=== PATIENT | male | born 1940 | race Caucasian/White ===

== ENCOUNTER 2020-08-14 20:07 | Inpatient (IN) | payer MEDICARE ==
[~2020-08-14] VITALS: Ht 172.7 cm; Wt 118.3 kg
[~2020-08-14 20:07] MED LIST: heparin 10,000 units/1 ML INJ ONE
[2020-08-14] MEDS ORDERED: ondansetron/PF 4mg/2ml inj IV STA (20:16)
[2020-08-14] MEDS ORDERED: morphine 4 MG/ML inj SYRINge IV STA (20:16)
[2020-08-14] MEDS ORDERED: heparin, porcine 5000 units/ml vial IV STA (20:16)
[2020-08-14] MEDS ORDERED: normal saline 1000ml 1,000 ML IVB ONE (20:25)
[2020-08-14] MEDS ORDERED: nitroGLYCERIN-Tridil 50MG/D5W 250 ML IV ONE (20:33)
[2020-08-14] MEDS ORDERED: ATOR40TA PO (20:34)
[2020-08-14] MEDS ORDERED: LOSA25TA96 PO (20:34)
[2020-08-14] MEDS ORDERED: midazolam 1 mg/ML 2ml injection ONE (20:34)
[2020-08-14] MEDS ORDERED: fentaNYL/PF 50MCG/1 ML 2ML syringe ONE (20:34)
[2020-08-14] MEDS ORDERED: CLOP75TA34 PO (20:34)
[2020-08-14] MEDS ORDERED: METO25TA6 PO (20:34)
[2020-08-14] MEDS ORDERED: iohexol 350MG/ML 100ml bottle IV ONE ×4 (20:34→21:47)
[2020-08-14] MEDS ORDERED: SILD50TA PO (20:34)
[2020-08-14] MEDS ORDERED: heparin 1,000unit/ml 10ml vial 10 ML ONE ×2 (20:34→22:34)
[2020-08-14] MEDS ORDERED: LIDOcaine 1% (10mg/ml)w/preservative injection 20ml MDV ONE (20:34)
[2020-08-14] MEDS ORDERED: ASPI81TA52 PO (20:34)
--- NOTE | 2020-08-14 20:38 | NUR ---
dr almaguer at bedside.
--- NOTE | 2020-08-14 20:42 | NUR ---
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
[2020-08-14 20:45] LABS: ALANINE AMINOTRANSFERASE 37 U/L (12-78); ALBUMIN 3.5 G/DL (3.4-5.0); ALKALINE PHOSPHATASE 116 IU/L (46-116); ANION GAP 8 (8-16); ASPARTATE AMINO TRANSFERASE 25 U/L (10-37); BILIRUBIN,TOTAL 0.4 MG/DL (0.1-1.0); BLOOD UREA NITROGEN 22 MG/DL (7-18); BUN/CREATININE RATIO 18.2 (5.4-32.0); CALCIUM 8.7 MG/DL (8.5-10.1); CHLORIDE 103 MMOL/L (99-107); CREATININE 1.21 MG/DL (0.60-1.10); GLUCOSE 133 MG/DL (70-104); POTASSIUM 3.3 MMOL/L (3.5-5.1); SODIUM 139 MMOL/L (135-145); TOTAL CARBON DIOXIDE 28.2 MMOL/L (24-32); TOTAL PROTEIN 7.1 G/DL (6.4-8.2); eGFR 58 ML/MIN
[2020-08-14 20:49] LABS: BASOPHILS # (AUTO) 0.1 X10'3 (0-0.2); BASOPHILS % (AUTO) 1.6 % (0-1); EOSINOPHILS # (AUTO) 0.7 X10'3 (0-0.9); EOSINOPHILS % (AUTO) 8.4 % (0-6); HEMATOCRIT 39.9 % (42.0-52.0); HEMOGLOBIN 13.7 g/dl (14.0-17.9); LYMPHOCYTES # (AUTO) 2.4 X10'3 (1.1-4.8); LYMPHOCYTES % (AUTO) 29.2 % (21-51); MEAN CORPUSCULAR HEMOGLOBIN 32.2 PG (27.0-31.0); MEAN CORPUSCULAR HGB CONC 34.2 g/dL (33.0-36.5); MEAN PLATELET VOLUME 8.8 FL (7.4-10.4); MONOCYTES % (AUTO) 12.8 % (2-12); NEUTROPHILS # (AUTO) 3.9 X10'3 (1.8-7.7); PLATELET COUNT 238 X10'3 (140-440); RED BLOOD COUNT 4.24 X10'6 (4.70-6.10); RED CELL DISTRIBUTION WIDTH 13.4 % (11.5-14.5); WHITE BLOOD COUNT 8.1 X10'3 (4.5-11.0)
[2020-08-14] MEDS ORDERED: heparin 25,000 UNIT/250ml bag 250 ML IV ONE (20:56)
[2020-08-14] MEDS ORDERED: verapamil 2.5 mg/ml inj IV ONE (21:49)
[2020-08-14] MEDS ORDERED: heparin 1,000 UNITS/NS 500ml 500 ML ONE (22:13)
[2020-08-14] MEDS ORDERED: ticagrelor 90mg tablet ONE (22:46)
[2020-08-14] MEDS ORDERED: tirofiban 5mg in NS 100mL 100 ML IV ONE ×2 (22:56→23:27)
--- NOTE | 2020-08-14 23:30 | NUR ---
Patient arrived from [facility] via gurney. Report from VARGHESE Juan. Patient is awake and alert, c/o some discomfort to his anterior chest substernal rated 6-7/10 by patient. Patient describes pain as a "sharp ache" denies any radiation, shortness of breath, or nausea. Per report from VARGHESE Juan: Dr. Perez is aware of his chest pain and some chest discomfort is expected. Written orders from reviewed, noted and faxed to pharmacy. 12 - lead ECG completed. Right femoral arterial line transduced to pressure tubing and zeroed. Patient educated on post op care of right femoral arterial line, remaining supine.
[2020-08-14 23:45] VITALS: BP 177/77
[2020-08-14] MEDS ORDERED: OXAZEpam 15mg capsule PO PRN (23:45)
[2020-08-14] MEDS ORDERED: proCHLORperazine 10 MG/2 ml inj IV PRN (23:45)
[2020-08-14] MEDS ORDERED: morphine 10mg/ml inj. IV PRN (23:45)
[2020-08-14] MEDS ORDERED: ticagrelor 90mg tablet PO ONE (23:45)
[2020-08-14] MEDS ORDERED: magnesium hydroxide 30ml (MOM) UD suspension PO PRN (23:45)
[2020-08-14] MEDS ORDERED: acetaminophen 325mg tablet PO PRN ×2 (23:45)
[2020-08-14] MEDS ORDERED: HYDROcodone/acetaminophen 10/325mg tab PO PRN ×2 (23:45)
[2020-08-14] MEDS ORDERED: normal saline 1000ml 1,000 ML IV ONE (23:50)
[2020-08-15] VITALS (25 sets, daily range): BP systolic 108–167; BP diastolic 1–75
[2020-08-15] MEDS ORDERED: nitroGLYCERIN-Tridil 50MG/D5W 250 ML IV PRN
[2020-08-15] MEDS: morphine 2 MG/ML inj. syringe IV PRN ×4 (00:11→12:17)
[2020-08-15] MEDS: tirofiban 5mg in NS 100mL 100 ML IV SCH ×5 (00:17→23:35)
[2020-08-15] MEDS ORDERED: magnesium 2GM in 50ml NS 50 ML IV PRN (00:35)
[2020-08-15] MEDS ORDERED: potassium Cl 40MEQ/1/2NS 520ml 520 ML IV PRN (00:35)
[2020-08-15] MEDS ORDERED: magnesium Cl slow-release 64mg tablet PO PRN (00:35)
[2020-08-15] MEDS ORDERED: magnesium 4gm in 100ml NS 100 ML IV PRN (00:35)
[2020-08-15] MEDS ORDERED: potassium Cl 20 mEq SR tablet PO PRN (00:35)
[2020-08-15 01:30] LABS: MAGNESIUM 1.8 MG/DL (1.5-2.4); POTASSIUM 3.8 MMOL/L (3.5-5.1)
[2020-08-15] MEDS: potassium Cl 20 mEq SR tablet PO PRN ×3 (02:19→14:15)
--- NOTE | 2020-08-15 03:00 | NUR ---
Patient educated on not straining while urinating and the importance of remaining supine.
[2020-08-15] MEDS: cyclobenzaprine 10mg tablet PO PRN ×2 (04:43→12:16)
[2020-08-15 06:00] LABS: BASOPHILS # (AUTO) 0.1 X10'3 (0-0.2); BASOPHILS % (AUTO) 0.7 % (0-1); EOSINOPHILS # (AUTO) 0.1 X10'3 (0-0.9); EOSINOPHILS % (AUTO) 0.8 % (0-6); HEMATOCRIT 37.8 % (42.0-52.0); HEMOGLOBIN 12.8 g/dl (14.0-17.9); LYMPHOCYTES # (AUTO) 1.2 X10'3 (1.1-4.8); LYMPHOCYTES % (AUTO) 11.1 % (21-51); MEAN CORPUSCULAR HEMOGLOBIN 32.1 PG (27.0-31.0); MEAN CORPUSCULAR HGB CONC 33.7 g/dL (33.0-36.5); MEAN CORPUSCULAR VOLUME 95.1 FL (78-98); MEAN PLATELET VOLUME 8.7 FL (7.4-10.4); MONOCYTES # (AUTO) 0.8 X10'3 (0-0.9); MONOCYTES % (AUTO) 7.2 % (2-12); NEUTROPHILS # (AUTO) 8.7 X10'3 (1.8-7.7); NEUTROPHILS % (AUTO) 80.2 % (42-75); PLATELET COUNT 222 X10'3 (140-440); RED BLOOD COUNT 3.98 X10'6 (4.70-6.10); RED CELL DISTRIBUTION WIDTH 13.6 % (11.5-14.5); WHITE BLOOD COUNT 10.8 X10'3 (4.5-11.0)
--- NOTE | 2020-08-15 06:15 | NUR ---
Problems reprioritized. Patient report given, questions answered & plan of care reviewed with VARGHESE Black.
--- NOTE | 2020-08-15 06:23 | NUR ---
Dr. Perez service called to report hematoma at cath site. Approximately 5cm.
[2020-08-15 06:25] LABS: ALANINE AMINOTRANSFERASE 54 U/L (12-78); ALBUMIN 3.2 G/DL (3.4-5.0); ALKALINE PHOSPHATASE 101 IU/L (46-116); ANION GAP 9 (8-16); ASPARTATE AMINO TRANSFERASE 237 U/L (10-37); BILIRUBIN,TOTAL 0.5 MG/DL (0.1-1.0); BLOOD UREA NITROGEN 18 MG/DL (7-18); BUN/CREATININE RATIO 16.4 (5.4-32.0); CALCIUM 7.8 MG/DL (8.5-10.1); CHLORIDE 105 MMOL/L (99-107); CHOL/HDL RATIO 2.4 (0.00-4.99); CHOLESTEROL 133 MG/DL (0-200); GLUCOSE 138 MG/DL (70-104); HDL CHOLESTEROL 55 MG/DL (35-60); LDL CHOLESTEROL 70 MG/DL (50-100); MAGNESIUM 1.8 MG/DL (1.5-2.4); POTASSIUM 3.8 MMOL/L (3.5-5.1); SODIUM 138 MMOL/L (135-145); TOTAL CARBON DIOXIDE 24.2 MMOL/L (24-32); TOTAL PROTEIN 6.4 G/DL (6.4-8.2); TRIGLYCERIDES 59 MG/DL (20-135); eGFR 65 ML/MIN
--- NOTE | 2020-08-15 06:30 | NUR ---
Dr. Perez returned phone call. Orders to turn off Heparin, continue Aggrastat. Hold manual pressure for [address] Femstop above sheath. quarter supervisor made aware of situation. Manual pressure held by Godwin KWONG.
--- NOTE | 2020-08-15 06:40 | NUR ---
femstop applied by Godwin above sheath pulses palpable, will continue to monitor.
[2020-08-15] MEDS: losartan 50mg tablet PO SCH (07:55)
[2020-08-15] MEDS: ticagrelor 90mg tablet PO SCH ×2 (07:56→19:33)
[2020-08-15] MEDS: HYDROchlorothiazide 25mg tablet PO SCH (07:56)
[2020-08-15] MEDS: docusate sod 100mg capsule PO SCH ×2 (07:56→19:33)
[2020-08-15] MEDS: atorvastatin 20mg tablet PO SCH (07:57)
[2020-08-15] MEDS: aspirin 81mg tab.chew PO SCH (07:57)
[2020-08-15] MEDS: metoprolol tartrate 25mg tablet PO SCH ×2 (07:57→19:34)
[2020-08-15] MEDS ORDERED: LOSA1TAB39 PO (10:35)
--- NOTE | 2020-08-15 17:30 | NUR ---
FEMSTOP TO RIGHT FENIRAL REMOVED., NO BLEEDING NOTED, ECCYMOSIS ON THE AREA NOTED, AREA SOFT, PRESSURE DRESSING APPLIED.
--- NOTE | 2020-08-15 18:15 | NUR ---
Patient in room ICU 2041. I have received report from Sofia KWONG and had the opportunity to ask questions and assume patient care.
--- NOTE | 2020-08-15 19:50 | NUR ---
Report given ACCE RN, pt to be transferred via wheelchair with his belongings to room 313.
--- NOTE | 2020-08-15 20:30 | NUR ---
2020-Pt to room 313, helped to bed, no dizziness when standing.
--- NOTE | 2020-08-15 20:32 | NUR ---
PATIENT IN 313 ACCE
--- NOTE | 2020-08-15 20:32 | NUR ---
Patient in room ICU 2041. I have received report from curriculum and assessment director and had the opportunity to ask questions and assume patient care.
[2020-08-16 01:52] VITALS: BP 128/66
[2020-08-16] MEDS: tirofiban 5mg in NS 100mL 100 ML IV SCH ×2 (04:21→09:07)
--- NOTE | 2020-08-16 06:28 | NUR ---
Problems reprioritized. Patient report given, questions answered & plan of care reviewed with Shorty KWONG.
[2020-08-16 07:00] VITALS: BP 133/51
[2020-08-16] MEDS: HYDROchlorothiazide 25mg tablet PO SCH (07:13)
[2020-08-16] MEDS: ticagrelor 90mg tablet PO SCH ×2 (07:13→15:29)
[2020-08-16] MEDS: aspirin 81mg tab.chew PO SCH (07:13)
[2020-08-16] MEDS: losartan 50mg tablet PO SCH (07:14)
[2020-08-16] MEDS: docusate sod 100mg capsule PO SCH (07:14)
[2020-08-16] MEDS: metoprolol tartrate 25mg tablet PO SCH (07:18)
[2020-08-16] MEDS: atorvastatin 20mg tablet PO SCH (07:18)
[2020-08-16] MEDS ORDERED: potassium Cl 20 mEq SR tablet PO PRN ×2 (09:15)
[2020-08-16] MEDS ORDERED: K and/or MAG REPLACEMENT MC SCH (09:15)
[2020-08-16 11:00] VITALS: BP 118/69
[2020-08-16 11:23] LABS: MAGNESIUM 1.9 MG/DL (1.5-2.4)
[2020-08-16 11:26] LABS: POTASSIUM 3.7 MMOL/L (3.5-5.1)
[2020-08-16] MEDS ORDERED: ATOR-2 PO (13:44)
[2020-08-16] MEDS ORDERED: TICA90TA PO (13:44)
--- NOTE | 2020-08-16 15:32 | NUR ---
reviewed all discharge instructions with pt and ,[facility] [place]pt aware that brillenta will not be in @ [facility] until 3/15 am,pt given evening dose before leaving,SL dc'd from left hand and RAC, sites clear,pt provided post angio instructions,pt dc'd via w/c with all belongings
== END 2020-08-16 15:32 | disposition home or self-care (01) | DRG 246 ==
LOC: ER 20:08 → ICU 2S 23:24 → UNDOADMIN 23:24 → ICU 2S 08-15 21:03 → MED 3N 08-15 21:03 → UNDODISIN 08-16 15:32
PROVIDERS: ADMIT Internal Medicine Pulmonary Disease; ATTEND Internal Medicine Pulmonary Disease
PROC: 4A023N7 Measurement of Cardiac Sampling and Pressure, Left Heart, Percutaneous Approach (ICD-10-PCS; principal; 2020-08-15)
PROC: 027035Z Dilation of Coronary Artery, One Artery with Two Drug-eluting Intraluminal Devices, Percutaneous Approach (ICD-10-PCS; 2020-08-15)
PROC: B2111ZZ Fluoroscopy of Multiple Coronary Arteries using Low Osmolar Contrast (ICD-10-PCS; 2020-08-15)
PROC: B2151ZZ Fluoroscopy of Left Heart using Low Osmolar Contrast (ICD-10-PCS; 2020-08-15)
PROC: B3101ZZ Fluoroscopy of Thoracic Aorta using Low Osmolar Contrast (ICD-10-PCS; 2020-08-15)
PROC: B2131ZZ Fluoroscopy of Multiple Coronary Artery Bypass Grafts using Low Osmolar Contrast (ICD-10-PCS; 2020-08-15)
PROC: B2181ZZ Fluoroscopy of Left Internal Mammary Bypass Graft using Low Osmolar Contrast (ICD-10-PCS; 2020-08-15)
DX: T82.867A Thrombosis due to cardiac prosthetic devices, implants and grafts, initial encounter (principal); I21.19 ST elevation (STEMI) myocardial infarction involving other coronary artery of inferior wall; E78.00 Pure hypercholesterolemia, unspecified; E78.5 Hyperlipidemia, unspecified; I10 Essential (primary) hypertension; M54.2 Cervicalgia; Y83.2 Surgical operation with anastomosis, bypass or graft as the cause of abnormal reaction of the patient, or of later complication, without mention of misadventure at the time of the procedure; E66.9 Obesity, unspecified; M19.90 Unspecified osteoarthritis, unspecified site; I25.10 Atherosclerotic heart disease of native coronary artery without angina pectoris; Z96.651 Presence of right artificial knee joint; N28.9 Disorder of kidney and ureter, unspecified; Z86.79 Personal history of other diseases of the circulatory system; Z95.1 Presence of aortocoronary bypass graft; Y92.89 Other specified places as the place of occurrence of the external cause; Z79.899 Other long term (current) drug therapy; Z79.82 Long term (current) use of aspirin; Z68.39 Body mass index [BMI] 39.0-39.9, adult; Z80.1 Family history of malignant neoplasm of trachea, bronchus and lung; Z86.73 Personal history of transient ischemic attack (TIA), and cerebral infarction without residual deficits
CPT/HCPCS: 92920; 93306; 93459; 96374; 96375; 99291; C9606; 36415; 71045; 76937; 80053; 80061; 82948; 83735; 83880; 84132; 84484; 85025; 85347; 85730; 87081; 93005; 93308; 99152; 99153; A4620; A6258; C1725; C1751; C1769; C1874; C1887; C1894; G0378; J1644; J2001; J2250; J2270; J2405; J3010; J3246; J3490; J7030; J7040; Q9967

== ENCOUNTER 2021-11-05 08:58 | Outpatient (CLI) | payer MEDICARE ==
[~2021-11-05] VITALS: Ht 172.7 cm; Wt 109.3 kg
[2021-11-05] VITALS (9 sets, daily range): BP systolic 97–137; BP diastolic 46–67
[~2021-11-05 08:58] MED LIST changes: +ASPI81TA52 PO; +ATOR-2 PO; +LOP25T PO; +LOSA1TAB39 PO; +TICA90TA PO; -heparin 10,000 units/1 ML INJ ONE
[2021-11-05] MEDS ORDERED: regadenoson 0.4mg/5ml syringe IV ONE (10:00)
[2021-11-05] MEDS ORDERED: nitroGLYCERIN 0.4mg SUBLingual tab SL PRN (10:00)
[2021-11-05] MEDS ORDERED: normal saline 500ml IV soln 500 ML IV ONE (10:00)
[2021-11-05] MEDS ORDERED: aminophylline 500mg/20ml vial IV PRN (10:00)
[2021-11-05 13:03] LABS: ALBUMIN 3.8 G/DL (3.4-5.0); ANION GAP 9 (8-16); BLOOD UREA NITROGEN 27 MG/DL (7-18); BUN/CREATININE RATIO 22.3 (5.4-32.0); CALCIUM 8.9 MG/DL (8.5-10.1); CHLORIDE 102 MMOL/L (99-107); CREATININE 1.21 MG/DL (0.60-1.10); GLUCOSE 95 MG/DL (70-104); SODIUM 139 MMOL/L (135-145); TOTAL CARBON DIOXIDE 28.4 MMOL/L (24-32); eGFR 58 ML/MIN
[2021-11-05 13:09] LABS: POTASSIUM 3.8 MMOL/L (3.5-5.1)
== END 2021-11-05 23:59 | disposition home or self-care (01) ==
LOC: RAD 08:58
PROVIDERS: ATTEND Internal Medicine Cardiovascular Disease
DX: I34.0 Nonrheumatic mitral (valve) insufficiency (principal); I51.7 Cardiomegaly; I25.10 Atherosclerotic heart disease of native coronary artery without angina pectoris
CPT/HCPCS: 36415; 78452; 80048; 83880; 93017; 93306; A9500; J0280; J2785; J7040

== ENCOUNTER 2021-12-13 06:48 | Day surgery (SDC) | payer MEDICARE ==
[2021-12-10 10:22] LABS: ALBUMIN 3.6 G/DL (3.4-5.0); ANION GAP 9 (8-16); BLOOD UREA NITROGEN 32 MG/DL (7-18); BUN/CREATININE RATIO 18.7 (5.4-32.0); CALCIUM 8.9 MG/DL (8.5-10.1); CHLORIDE 104 MMOL/L (99-107); CREATININE 1.71 MG/DL (0.60-1.10); GLUCOSE 96 MG/DL (70-104); POTASSIUM 3.6 MMOL/L (3.5-5.1); SODIUM 141 MMOL/L (135-145); TOTAL CARBON DIOXIDE 28.1 MMOL/L (24-32); eGFR 39 ML/MIN
[2021-12-10 10:24] LABS: BASOPHILS # (AUTO) 0.1 X10'3 (0-0.2); BASOPHILS % (AUTO) 1.3 % (0-1); EOSINOPHILS # (AUTO) 0.5 X10'3 (0-0.9); EOSINOPHILS % (AUTO) 5.6 % (0-6); HEMATOCRIT 36.6 % (42.0-52.0); HEMOGLOBIN 12.4 g/dl (14.0-17.9); LYMPHOCYTES # (AUTO) 1.4 X10'3 (1.1-4.8); LYMPHOCYTES % (AUTO) 16.6 % (21-51); MEAN CORPUSCULAR HEMOGLOBIN 31.5 PG (27.0-31.0); MEAN CORPUSCULAR HGB CONC 33.9 g/dL (33.0-36.5); MEAN CORPUSCULAR VOLUME 93.2 FL (78-98); MEAN PLATELET VOLUME 8.4 FL (7.4-10.4); MONOCYTES # (AUTO) 0.9 X10'3 (0-0.9); NEUTROPHILS # (AUTO) 5.7 X10'3 (1.8-7.7); NEUTROPHILS % (AUTO) 66.5 % (42-75); PLATELET COUNT 216 X10'3 (140-440); RED BLOOD COUNT 3.93 X10'6 (4.70-6.10); RED CELL DISTRIBUTION WIDTH 13.7 % (11.5-14.5); WHITE BLOOD COUNT 8.6 X10'3 (4.5-11.0)
[2021-12-10 10:25] LABS: APTT 30 SECONDS (22-32)
[~2021-12-13] VITALS: Ht 172.7 cm; Wt 108.9 kg
[2021-12-13] VITALS (15 sets, daily range): BP systolic 79–126; BP diastolic 43–75
[2021-12-13] MEDS ORDERED: verapamil 2.5 mg/ml inj IV ONE (07:33)
[2021-12-13] MEDS ORDERED: heparin 1,000unit/ml 10ml vial 10 ML ONE (07:34)
[2021-12-13] MEDS ORDERED: midazolam 1 mg/ML 2ml injection ONE (07:34)
[2021-12-13] MEDS ORDERED: iohexol 350MG/ML 100ml bottle IV ONE ×5 (07:34→10:32)
[2021-12-13] MEDS ORDERED: LIDOcaine 1% (10mg/ml) 2ml vial ONE (07:34)
[2021-12-13] MEDS ORDERED: nitroGLYCERIN-Tridil 50MG/D5W 250 ML IV ONE (07:34)
[2021-12-13] MEDS ORDERED: fentaNYL/PF 50MCG/1 ML 2ML syringe ONE (07:34)
[2021-12-13] MEDS ORDERED: sodium bicarbonate (8.4%) inj. 150 ML in dextrose 5%-water 1,000 ML IV ONE ×2 (07:35→12:48)
[2021-12-13] MEDS ORDERED: LORazepam 0.5 MG tablet PO PRN (07:35)
[2021-12-13] MEDS ORDERED: LIDOcaine/PRILOcaine 5gm cream TP ONE (07:35)
[2021-12-13] MEDS ORDERED: diphenhydrAMINE 25mg capsule PO PRN (07:35)
--- NOTE | 2021-12-13 08:15 | NUR ---
notified of low bp. New order received to give pt 250mls of NS Bolus not. May repeat if BP systolic not improved over 100. Addendum: 12/13/21 at 1033 by John Estrada RN Amended: Links added.
[2021-12-13] MEDS: normal saline 1,000 ML IV SCH ×2 (08:30→17:35)
[2021-12-13] MEDS: acetylcysteine 200 MG/ml 4ml vial PO PRN ×2 (08:30→12:21)
[2021-12-13] MEDS ORDERED: APIX5TAB3 PO (08:50)
[2021-12-13] MEDS ORDERED: TICA90TA2 PO (08:50)
[2021-12-13] MEDS ORDERED: AMIO200T61 PO (08:50)
[2021-12-13] MEDS ORDERED: ATOR-2 PO (08:50)
[2021-12-13] MEDS ORDERED: FURO20TA4 PO (08:50)
[2021-12-13] MEDS ORDERED: NAPR220T67 PO (08:50)
[2021-12-13] MEDS ORDERED: heparin 25,000 UNIT/250ml bag 250 ML IV ONE (09:41)
[2021-12-13] MEDS ORDERED: heparin 1,000 UNITS/NS 500ml 500 ML ONE (10:40)
[2021-12-13] MEDS ORDERED: ticagrelor 90mg tablet ONE (11:02)
[2021-12-13 11:31] LABS: ISTAT Hct MIX 33 %PCV (42-52); ISTAT O2 SATURATION MIX VENOUS 62 % (60-80); ISTAT SOURCE BLNK
[2021-12-13 11:31] LABS: ISTAT HGB ART 11.2 g/dl (14.0-18.0); ISTAT Hct ART 33 %PCV (42-52); ISTAT O2 SATURATION ARTERIAL 98 % (95-98); ISTAT SOURCE BLNK
[2021-12-13] MEDS ORDERED: ondansetron/PF 4mg/2ml inj IV PRN (13:05)
[2021-12-13] MEDS ORDERED: proCHLORperazine 10 MG/2 ml inj IV PRN (13:05)
[2021-12-13] MEDS ORDERED: HYDROcodone/acetaminophen 10/325mg tab PO PRN (13:05)
[2021-12-13] MEDS ORDERED: furosemide 20MG tablet PO PRN (13:25)
--- NOTE | 2021-12-13 17:15 | NUR ---
Report given to Enriqueta KWONG and chance given to ask questions. Pt transferred with all personal belongings. accompanying pt to room. Addendum: 12/13/21 at 1842 by John Estrada RN Amended: Links added.
--- NOTE | 2021-12-13 17:46 | NUR ---
Patient is alert, oriented, and appropriate. Left radial cath site is CDI no hematoma. Radial band is off and pressure dressing is in place. Sensation and distal pulses intact. Patient in no acute distress.
--- NOTE | 2021-12-13 18:24 | NUR ---
Problems reprioritized. Patient report given, questions answered & plan of care reviewed with Jack RN. Patient resting in bed in no acute distress.
[2021-12-13] MEDS: amiodarone 200mg tablet PO SCH (20:26)
[2021-12-13] MEDS: ticagrelor 90mg tablet PO SCH (20:26)
[2021-12-13] MEDS: metoprolol tartrate 25mg tablet PO SCH (20:33)
[2021-12-13] MEDS: HYDROcodone/acetaminophen 5mg/325mg tablet PO PRN (20:34)
[2021-12-14] VITALS (9 sets, daily range): BP systolic 97–117; BP diastolic 43–62
[2021-12-14] MEDS: normal saline 1,000 ML IV SCH ×2 (03:35→13:35)
[2021-12-14] MEDS ORDERED: verapamil 2.5 mg/ml inj IV ONE (06:03)
[2021-12-14] MEDS ORDERED: midazolam 1 mg/ML 2ml injection ONE (06:03)
[2021-12-14] MEDS ORDERED: nitroGLYCERIN-Tridil 50MG/D5W 250 ML IV ONE (06:03)
[2021-12-14] MEDS ORDERED: fentaNYL/PF 50MCG/1 ML 2ML syringe ONE (06:03)
[2021-12-14] MEDS ORDERED: heparin 1,000unit/ml 10ml vial 10 ML ONE (06:04)
[2021-12-14] MEDS ORDERED: iohexol 350MG/ML 100ml bottle IV ONE ×2 (06:04→07:17)
[2021-12-14] MEDS ORDERED: LIDOcaine 1% 30ml preserv. free vial ONE (06:04)
[2021-12-14] MEDS ORDERED: heparin 25,000 UNIT/250ml bag 250 ML IV ONE (06:33)
[2021-12-14] MEDS ORDERED: ticagrelor 90mg tablet ONE (07:35)
[2021-12-14] MEDS ORDERED: atorvastatin 20mg tablet PO SCH (08:00)
[2021-12-14] MEDS: amiodarone 200mg tablet PO SCH (08:00)
[2021-12-14] MEDS ORDERED: aspirin 81mg, enteric-coated 1 TAB TABLET.DR PO SCH (08:00)
[2021-12-14] MEDS: ticagrelor 90mg tablet PO SCH (08:00)
[2021-12-14] MEDS: metoprolol tartrate 25mg tablet PO SCH (08:00)
--- NOTE | 2021-12-14 08:31 | NUR ---
HAND DELIVERED STENT CARDS X2 AND WRITTEN RX FROM dR. Negron TO PT AT BEDSIDE.
--- NOTE | 2021-12-14 09:35 | NUR ---
CammieTA GIVEN BY COMMUNICATIONS EXECUTIVE rn THIS MORNING
[2021-12-14] MEDS: HYDROcodone/acetaminophen 5mg/325mg tablet PO PRN (09:46)
[2021-12-14] MEDS ORDERED: ticagrelor 90mg tablet PO ONE (10:45)
[2021-12-14] MEDS ORDERED: sodium bicarbonate (8.4%) inj. 150 MEQ in dextrose 5%-water 1,000 ML IV SCH (10:55)
[2021-12-14] MEDS ORDERED: sodium bicarbonate (8.4%) inj. 150 MEQ in dextrose 5%-water 1,000 ML IV ONE (10:57)
[2021-12-14] MEDS ORDERED: ondansetron 4mg rapidly disintigrating tab PO PRN (11:45)
[2021-12-14 15:15] LABS: BASOPHILS # (AUTO) 0.1 X10'3 (0-0.2); BASOPHILS % (AUTO) 1.3 % (0-1); EOSINOPHILS # (AUTO) 0.5 X10'3 (0-0.9); EOSINOPHILS % (AUTO) 5.8 % (0-6); HEMATOCRIT 33.6 % (42.0-52.0); HEMOGLOBIN 11.7 g/dl (14.0-17.9); LYMPHOCYTES # (AUTO) 1.2 X10'3 (1.1-4.8); LYMPHOCYTES % (AUTO) 15.8 % (21-51); MEAN CORPUSCULAR HEMOGLOBIN 32.2 PG (27.0-31.0); MEAN CORPUSCULAR HGB CONC 34.7 g/dL (33.0-36.5); MEAN CORPUSCULAR VOLUME 92.7 FL (78-98); MEAN PLATELET VOLUME 8.3 FL (7.4-10.4); MONOCYTES # (AUTO) 0.9 X10'3 (0-0.9); MONOCYTES % (AUTO) 12.1 % (2-12); NEUTROPHILS # (AUTO) 5.1 X10'3 (1.8-7.7); PLATELET COUNT 179 X10'3 (140-440); RED BLOOD COUNT 3.63 X10'6 (4.70-6.10); RED CELL DISTRIBUTION WIDTH 13.4 % (11.5-14.5); WHITE BLOOD COUNT 7.8 X10'3 (4.5-11.0)
[2021-12-14 15:29] LABS: ALANINE AMINOTRANSFERASE 25 U/L (12-78); ALBUMIN 3.3 G/DL (3.4-5.0); ALKALINE PHOSPHATASE 102 IU/L (46-116); ANION GAP 7 (8-16); ASPARTATE AMINO TRANSFERASE 27 U/L (10-37); BILIRUBIN,TOTAL 1.3 MG/DL (0.1-1.0); BLOOD UREA NITROGEN 28 MG/DL (7-18); BUN/CREATININE RATIO 19.4 (5.4-32.0); CALCIUM 8.1 MG/DL (8.5-10.1); CHLORIDE 101 MMOL/L (99-107); CREATININE 1.44 MG/DL (0.60-1.10); GLUCOSE 97 MG/DL (70-104); MAGNESIUM 1.8 MG/DL (1.5-2.4); POTASSIUM 3.4 MMOL/L (3.5-5.1); SODIUM 138 MMOL/L (135-145); TOTAL CARBON DIOXIDE 29.8 MMOL/L (24-32); TOTAL PROTEIN 6.5 G/DL (6.4-8.2); eGFR 47 ML/MIN
--- NOTE | 2021-12-14 16:52 | NUR ---
Patient is DC to home. PIV was removed with cannula intact. All cath sites are CDI with out hematoma or complications sensation, and distal pulses intact. RX filled in hospital pharmacy and handed to patient. Stent cards x2 given to patient. DC instructions and warning s/s were reviewed with patient and and they verbalized understanding. Patient advised to drink lots of water due to dye and kidney function. All questions answered to patient satisfaction. Patient alert oriented and appropriate at time of DC. Patient wheeled to lobby and driven home by .
[2021-12-14] MEDS ORDERED: aspirin 325mg tablet PO SCH (20:00)
--- NOTE | 2021-12-21 10:08 | NUR ---
Case Management DC follow up: Spoke with Patient via telephone. S/P: Patient Reports: Denies: Acute/continuous CP, emergent SOB, resp distress ; however, verbalizes he continues to have exertional dyspnea.Verbalizes he weighs daily; however, was not aware to monitor , or limit, the amount of his daily fluid intake.Rational for fluid restriction in correlation to CHF given at this time.Included in measurement of fluid intake was anything that melts: Jell-O, ice chips, soups, ice cream.Verbalizes understanding of s/s that warrant 9-11/ER visit for further evaluation.Encouraged Patient to speak with his Doctor regarding the amount of fluid restriction needed.Denies : RUSSELL, blurry vision, s/s of stroke/BE-FAST, dysphagia, dysuria, hematuria, retention,abdominal pain/distention, hematochezia, melena, unexplained bruising,bleeding, fever, chills.Verbalizes his bilateral radial cath sites and groin cath site are clear;no s/s of infection,redness, drainage, warmth. Verbalizes understanding of Rx: why prescribed; continues/resumes current Rx as ordered.Verbalizes he still has episodes of feeling dizzy; however,verbalizes he takes his time when changing position from lying , sitting, standing; returning to sitting until dizziness resolves, or warrants a 9-11 call..Verbalizes he has scheduled follow up appointment with Dr. Perez for EKG, and cardioversion on 01/11/22.Verbalizes he is looking for PCP in [facility].Verbalizes the nurses and staff were very good.Needs met, questions/concerns addressed at DC; no further questions/concerns regarding recent hospital stay and/or DC status at this time.Verbalized today is his anniversary.Thanked him for his time, and wished him and his Happy Anniversary.
[2021-12-22] MEDS ORDERED: ATOR40TA PO (11:53)
[2021-12-22] MEDS ORDERED: AMIO200T62 PO (11:53)
[2021-12-22] MEDS ORDERED: METO-539 PO (11:53)
== END 2021-12-14 16:56 | disposition home or self-care (01) ==
LOC: SSTAY O 06:48 → PCU 3S 18:50 → UNDOADMIN 18:50 → SSTAY O 12-14 16:56 → UNDODISIN 12-14 16:56
PROVIDERS: ATTEND Internal Medicine Cardiovascular Disease
PROC: 027135Z Dilation of Coronary Artery, Two Arteries with Two Drug-eluting Intraluminal Devices, Percutaneous Approach (ICD-10-PCS; 2021-12-13)
PROC: 4A023N8 Measurement of Cardiac Sampling and Pressure, Bilateral, Percutaneous Approach (ICD-10-PCS; 2021-12-13)
PROC: B2111ZZ Fluoroscopy of Multiple Coronary Arteries using Low Osmolar Contrast (ICD-10-PCS; 2021-12-13)
PROC: B2151ZZ Fluoroscopy of Left Heart using Low Osmolar Contrast (ICD-10-PCS; 2021-12-13)
PROC: B2131ZZ Fluoroscopy of Multiple Coronary Artery Bypass Grafts using Low Osmolar Contrast (ICD-10-PCS; 2021-12-13)
PROC: 027034Z Dilation of Coronary Artery, One Artery with Drug-eluting Intraluminal Device, Percutaneous Approach (ICD-10-PCS; principal; 2021-12-14)
DX: I25.10 Atherosclerotic heart disease of native coronary artery without angina pectoris (principal); I12.9 Hypertensive chronic kidney disease with stage 1 through stage 4 chronic kidney disease, or unspecified chronic kidney disease; F03.90 Unspecified dementia, unspecified severity, without behavioral disturbance, psychotic disturbance, mood disturbance, and anxiety; I48.0 Paroxysmal atrial fibrillation; N18.9 Chronic kidney disease, unspecified; I71.4 Abdominal aortic aneurysm, without rupture; E78.5 Hyperlipidemia, unspecified; Z86.73 Personal history of transient ischemic attack (TIA), and cerebral infarction without residual deficits; Z95.1 Presence of aortocoronary bypass graft; Z95.5 Presence of coronary angioplasty implant and graft
CPT/HCPCS: 36415; 76937; 80048; 80053; 82803; 83735; 85014; 85025; 85347; 85610; 85730; 93005; 93459; A6258; C1725; C1751; C1760; C1769; C1874; C1894; C9600; J1644; J2250; J3010; J3490; J7030; J7070; Q0163; Q9967; 93461; 99152; 99153; A4615; A4620; A5120; A6402; G0378

== ENCOUNTER 2022-03-17 01:36 | Emergency (ER) | payer MEDICARE ==
[~2022-03-17] VITALS: Ht 167.6 cm; Wt 104.5 kg
[~2022-03-17 01:36] MED LIST changes: +AMIO200T62 PO; +APIX5TAB3 PO; -ATOR-2 PO; +ATOR40TA PO; +FURO20TA4 PO; -LOP25T PO; +METO-539 PO; -TICA90TA PO; +TICA90TA2 PO
[2022-03-17] MEDS ORDERED: acetaminophen 325mg tablet PO ONE (03:10)
[2022-03-17] MEDS ORDERED: ibuprofen tablet 400 MG TABLET PO ONE (05:05)
--- NOTE | 2022-03-17 05:35 | NUR ---
> received pt AOx4, hip and knee xray done at bedside, venous doppler ongoing now, stable vs
[2022-03-17 06:29] VITALS: BP 115/48
== END 2022-03-17 06:30 | disposition home or self-care (01) ==
LOC: ER 01:36
DX: S80.11XA Contusion of right lower leg, initial encounter (principal); E78.00 Pure hypercholesterolemia, unspecified; I10 Essential (primary) hypertension; W19.XXXA Unspecified fall, initial encounter; Y93.89 Activity, other specified; Y92.89 Other specified places as the place of occurrence of the external cause; Y99.8 Other external cause status
CPT/HCPCS: 73502; 73564; 93971; 99284